=== PATIENT | male | born 1950 | race Caucasian/White ===

== ENCOUNTER 2021-09-22 13:32 | Inpatient (IN) ==
[2021-09-22 14:19] LABS: Calcium 9.3 mg/dL (8.6-10.3); Potassium 3.4 mEq/L (3.5-5.1)
[2021-09-22] MEDS: 0.9 % Sodium Chloride 1,000 ML IVC SCH (14:30)
[2021-09-22] MEDS ORDERED: *HR* Heparin 5,000 UNIT/ML VIAL IVP PRN (15:17)
[2021-09-22] MEDS ORDERED: *HR* Heparin 5,000 UNIT/ML VIAL IVP ONE (15:17)
[2021-09-22] MEDS ORDERED: Dexamethasone Sodium Phos/PF 10 MG/ML VIAL IVP ONE (15:45)
[2021-09-22] MEDS ORDERED: Ondansetron 4 MG/2 ML VIAL IVP PRN (16:30)
[2021-09-22] MEDS ORDERED: Melatonin 3 MG TABLET PO PRN (16:30)
[2021-09-22] MEDS ORDERED: Naloxone 0.4 MG/ML INJ IVP PRN (16:30)
[2021-09-22 16:39] LABS: Hematocrit 37.1 % (37.5-50.1); Hemoglobin 13.3 g/dL (12.9-16.9); Mean Corpuscular HGB Conc 35.8 g/dL (31.6-35.5); Mean Corpuscular Hemoglobin 32.4 pg (28.0-33.3); Mean Corpuscular Volume 90.3 fL (83.0-100.0); Mean Platelet Volume 9.8 fL (9.4-12.4); Platelet Count 260 K/mcL (140-400); Red Blood Count 4.11 M/mcL (4.19-5.50); Red Cell Distribution Width 13.5 % (11.5-14.5); White Blood Count 4.9 K/mcL (4.3-11.1)
[2021-09-22 16:49] LABS: Heparin anti-factor XA UFH < 0.04 IU/mL (0.30-0.70); INR 1.5; Prothrombin Time 16.7 Seconds (9.4-12.1)
[2021-09-22] MEDS: Heparin 25,000UNIT/250ML 1/2NS 25,000 UNIT/250 ML IV.SOLN IVC SCH (16:55)
[2021-09-22 19:55] LABS: Amorphous Sediment,Urine Few per hpf (None-Few); Bilirubin,Urine Negative (Negative); Blood,Urine Moderate (Negative); Clarity,Urine Turbid (Clear); Color,Urine Yellow (Yellow); Glucose,Urine (UA) Normal (Normal); Hyaline Casts,Urine Few per lpf (None Seen); Ketones,Urine Negative (Negative); Leukocyte Esterase,Urine Negative (Negative); Mucus,Urine Few per lpf (None-Few); Nitrite,Urine Negative (Negative); PH,Urine 5.5 pH Units (5.0-8.0); Protein,Urine 70 mg/dL (Neg-Trace); RBC,Urine 0-3 per hpf (0-3); Renal Epithelial Cells,Urine Few per hpf (None-Few); Specific Gravity,Urine 1.016 (1.010-1.025); Squamous Epithelial Cell,Urine Few per hpf (None-Few); Transitional Epi Cells,Urine Few per hpf (None-Few); Urobilinogen,Urine Normal (Normal); WBC,Urine 15-30 per hpf (0-3)
[2021-09-22] MEDS ORDERED: Perflutren Lipid Microsphere 1.3 ML in 0.9 % Sodium Chloride 8.7 ML IVP PRN (22:26)
[2021-09-23] MEDS: *HR* Heparin 5,000 UNIT/ML VIAL IVP PRN ×2 (00:46→08:34)
[2021-09-23 08:01] LABS: Basophils % 0.4 %; Eosinophils # 0.1 K/mcL (0.0-0.6); Eosinophils % 1.3 %; Hematocrit 35.8 % (37.5-50.1); Hemoglobin 12.5 g/dL (12.9-16.9); Immature Granulocytes % 0.7 % (0-4); Lymphocytes # 0.5 K/mcL (0.6-4.6); Mean Corpuscular HGB Conc 34.9 g/dL (31.6-35.5); Mean Corpuscular Hemoglobin 31.6 pg (28.0-33.3); Mean Corpuscular Volume 90.6 fL (83.0-100.0); Mean Platelet Volume 9.8 fL (9.4-12.4); Monocytes # 0.2 K/mcL (0.0-1.3); Monocytes % 3.4 %; Neutrophils # 4.7 K/mcL (1.6-8.9); Platelet Count 229 K/mcL (140-400); Red Blood Count 3.95 M/mcL (4.19-5.50); Red Cell Distribution Width 13.4 % (11.5-14.5); Segmented Neutrophils % 85.2 %; White Blood Count 5.5 K/mcL (4.3-11.1)
[2021-09-23 08:11] LABS: Calcium 9.2 mg/dL (8.6-10.3); Potassium 3.3 mEq/L (3.5-5.1)
[2021-09-23] MEDS: 0.9 % Sodium Chloride 1,000 ML IVC SCH ×3 (08:41→18:34)
[2021-09-23 09:25] LABS: Platelet Estimate Normal (Normal); Reactive Lymphocytes Present (Not Present)
[2021-09-23 13:13] LABS: Albumin 3.1 g/dL (3.5-5.7); Albumin/Globulin Ratio 0.9 (1.1-2.2); Bilirubin,Direct 0.3 mg/dL (0.0-0.2); Bilirubin,Indirect 0.6 mg/dL (0.0-1.0); Bilirubin,Total 0.9 mg/dL (0.3-1.0); Globulin 3.6 g/dL (2.4-3.5); Total Protein 6.7 g/dL (6.4-8.9)
[2021-09-23 14:22] LABS: Heparin anti-factor XA UFH 0.06 IU/mL (0.30-0.70)
[2021-09-23 14:44] LABS: Magnesium 2.7 mg/dL (1.6-2.6)
[2021-09-23 14:57] LABS: Thyroid Stimulating Hormone 0.448 mcIU/mL (0.340-5.600)
[2021-09-23] MEDS: Heparin 25,000UNIT/250ML 1/2NS 25,000 UNIT/250 ML IV.SOLN IVC SCH (16:11)
[2021-09-23] MEDS ORDERED: 0.9 % Sodium Chloride 250 ML ONE (17:19)
[2021-09-24] MEDS: 0.9 % Sodium Chloride 1,000 ML IVC SCH ×2 (04:27→16:49)
[2021-09-24 05:25] LABS: Basophils % 0.5 %; Eosinophils % 0.5 %; Hematocrit 35.5 % (37.5-50.1); Immature Granulocytes % 1.1 % (0-4); Lymphocytes # 0.5 K/mcL (0.6-4.6); Lymphocytes % 7.7 %; Mean Corpuscular HGB Conc 33.8 g/dL (31.6-35.5); Mean Corpuscular Hemoglobin 30.4 pg (28.0-33.3); Mean Corpuscular Volume 89.9 fL (83.0-100.0); Mean Platelet Volume 9.5 fL (9.4-12.4); Monocytes # 0.2 K/mcL (0.0-1.3); Monocytes % 3.3 %; Neutrophils # 5.8 K/mcL (1.6-8.9); Platelet Count 249 K/mcL (140-400); Red Blood Count 3.95 M/mcL (4.19-5.50); Red Cell Distribution Width 13.2 % (11.5-14.5); Segmented Neutrophils % 86.9 %; White Blood Count 6.6 K/mcL (4.3-11.1)
[2021-09-24 05:32] LABS: Albumin 2.8 g/dL (3.5-5.7); Albumin/Globulin Ratio 0.8 (1.1-2.2); Bilirubin,Total 0.6 mg/dL (0.3-1.0); Calcium 8.9 mg/dL (8.6-10.3); Globulin 3.5 g/dL (2.4-3.5); Potassium 3.6 mEq/L (3.5-5.1); Total Protein 6.3 g/dL (6.4-8.9)
[2021-09-24] MEDS: Heparin 25,000UNIT/250ML 1/2NS 25,000 UNIT/250 ML IV.SOLN IVC SCH (08:17)
[2021-09-24] MEDS ORDERED: Remdesivir 200 MG in 0.9 % Sodium Chloride 100 ML IVPB ONE (08:53)
[2021-09-24] MEDS: Cholecalciferol (D-3) 1,000 UNIT (25MCG) TABLET PO SCH (10:21)
[2021-09-24] MEDS: Pantoprazole 40 MG VIAL IVP SCH (10:22)
[2021-09-24] MEDS: Apixaban 5 MG TABLET PO SCH ×2 (12:49→19:56)
[2021-09-25 02:05] LABS: Hematocrit 34.5 % (37.5-50.1); Hemoglobin 11.4 g/dL (12.9-16.9); Mean Corpuscular Hemoglobin 30.6 pg (28.0-33.3); Mean Corpuscular Volume 92.7 fL (83.0-100.0); Mean Platelet Volume 9.1 fL (9.4-12.4); Platelet Count 242 K/mcL (140-400); Red Blood Count 3.72 M/mcL (4.19-5.50); Red Cell Distribution Width 13.4 % (11.5-14.5); White Blood Count 6.2 K/mcL (4.3-11.1)
[2021-09-25 02:24] LABS: Albumin 2.7 g/dL (3.5-5.7); Albumin/Globulin Ratio 0.9 (1.1-2.2); Bilirubin,Direct 0.2 mg/dL (0.0-0.2); Bilirubin,Indirect 0.3 mg/dL (0.0-1.0); Bilirubin,Total 0.5 mg/dL (0.3-1.0); Globulin 3.1 g/dL (2.4-3.5); Total Protein 5.8 g/dL (6.4-8.9)
[2021-09-25 02:25] LABS: BUN/Creatinine Ratio 39 (6-26); Blood Urea Nitrogen 51 mg/dL (8-23); C-Reactive Protein 59 mg/L (Less than 10); Calcium 8.7 mg/dL (8.6-10.3); Carbon Dioxide 23 mEq/L (23-29); Chloride 109 mEq/L (98-107); Glucose 124 mg/dL (70-105); Lactate Dehydrogenase 283 Units/L (140-271); Osmolality,Calculated 303 (280-300); Potassium 3.6 mEq/L (3.5-5.1); Sodium 139 mEq/L (136-145); eGFR For African Americans > 60 (> 60); eGFR For Non-African Americans 54 (> 60)
[2021-09-25] MEDS: 0.9 % Sodium Chloride 1,000 ML IVC SCH ×3 (03:18→20:20)
[2021-09-25] MEDS: Pantoprazole 40 MG VIAL IVP SCH (08:13)
[2021-09-25] MEDS: Cholecalciferol (D-3) 1,000 UNIT (25MCG) TABLET PO SCH (08:15)
[2021-09-25] MEDS: Apixaban 5 MG TABLET PO SCH ×2 (08:15→20:19)
[2021-09-25] MEDS: Remdesivir 100 MG in 0.9 % Sodium Chloride 100 ML IVPB SCH (08:29)
[2021-09-26 02:26] LABS: Albumin 2.9 g/dL (3.5-5.7); Albumin/Globulin Ratio 0.9 (1.1-2.2); Bilirubin,Direct 0.2 mg/dL (0.0-0.2); Bilirubin,Indirect 0.5 mg/dL (0.0-1.0); Bilirubin,Total 0.7 mg/dL (0.3-1.0); Globulin 3.4 g/dL (2.4-3.5); Total Protein 6.3 g/dL (6.4-8.9)
[2021-09-26] MEDS: 0.9 % Sodium Chloride 1,000 ML IVC SCH ×2 (10:38→22:07)
[2021-09-26] MEDS: Remdesivir 100 MG in 0.9 % Sodium Chloride 100 ML IVPB SCH (10:39)
[2021-09-26] MEDS: Cholecalciferol (D-3) 1,000 UNIT (25MCG) TABLET PO SCH (10:39)
[2021-09-26] MEDS: Apixaban 5 MG TABLET PO SCH ×2 (10:39→22:06)
[2021-09-26] MEDS: Pantoprazole 40 MG VIAL IVP SCH (10:40)
[2021-09-27 08:41] LABS: Hemoglobin 11.7 g/dL (12.9-16.9); Mean Corpuscular HGB Conc 33.4 g/dL (31.6-35.5); Mean Corpuscular Hemoglobin 30.6 pg (28.0-33.3); Mean Corpuscular Volume 91.6 fL (83.0-100.0); Mean Platelet Volume 8.8 fL (9.4-12.4); Platelet Count 255 K/mcL (140-400); Red Blood Count 3.82 M/mcL (4.19-5.50); Red Cell Distribution Width 13.5 % (11.5-14.5); White Blood Count 7.4 K/mcL (4.3-11.1)
[2021-09-27 09:02] LABS: BUN/Creatinine Ratio 35 (6-26); Blood Urea Nitrogen 45 mg/dL (8-23); Calcium 8.6 mg/dL (8.6-10.3); Carbon Dioxide 28 mEq/L (23-29); Chloride 109 mEq/L (98-107); Glucose 89 mg/dL (70-105); Osmolality,Calculated 303 (280-300); Potassium 4.4 mEq/L (3.5-5.1); Sodium 141 mEq/L (136-145); eGFR For African Americans > 60 (> 60); eGFR For Non-African Americans 55 (> 60)
[2021-09-27 09:04] LABS: Albumin 2.7 g/dL (3.5-5.7); Albumin/Globulin Ratio 0.9 (1.1-2.2); Bilirubin,Direct 0.3 mg/dL (0.0-0.2); Bilirubin,Indirect 0.3 mg/dL (0.0-1.0); Bilirubin,Total 0.6 mg/dL (0.3-1.0); Total Protein 5.7 g/dL (6.4-8.9)
[2021-09-27] MEDS: Pantoprazole 40 MG VIAL IVP SCH (09:26)
[2021-09-27] MEDS: 0.9 % Sodium Chloride 1,000 ML IVC SCH (09:26)
[2021-09-27] MEDS: Cholecalciferol (D-3) 1,000 UNIT (25MCG) TABLET PO SCH (09:27)
[2021-09-27] MEDS: Remdesivir 100 MG in 0.9 % Sodium Chloride 100 ML IVPB SCH (09:27)
[2021-09-27] MEDS: Apixaban 5 MG TABLET PO SCH ×2 (09:27→23:25)
[2021-09-28 01:09] LABS: Hematocrit 34.4 % (37.5-50.1); Hemoglobin 11.2 g/dL (12.9-16.9); Mean Corpuscular HGB Conc 32.6 g/dL (31.6-35.5); Mean Corpuscular Hemoglobin 29.7 pg (28.0-33.3); Mean Corpuscular Volume 91.2 fL (83.0-100.0); Platelet Count 253 K/mcL (140-400); Red Blood Count 3.77 M/mcL (4.19-5.50); Red Cell Distribution Width 13.2 % (11.5-14.5); White Blood Count 6.2 K/mcL (4.3-11.1)
[2021-09-28 01:28] LABS: Albumin 2.7 g/dL (3.5-5.7); Albumin/Globulin Ratio 0.9 (1.1-2.2); BUN/Creatinine Ratio 35 (6-26); Bilirubin,Direct 0.2 mg/dL (0.0-0.2); Bilirubin,Indirect 0.3 mg/dL (0.0-1.0); Bilirubin,Total 0.5 mg/dL (0.3-1.0); Blood Urea Nitrogen 39 mg/dL (8-23); Calcium 8.4 mg/dL (8.6-10.3); Carbon Dioxide 23 mEq/L (23-29); Chloride 110 mEq/L (98-107); Glucose 109 mg/dL (70-105); Osmolality,Calculated 296 (280-300); Sodium 138 mEq/L (136-145); Total Protein 5.7 g/dL (6.4-8.9); eGFR For African Americans > 60 (> 60); eGFR For Non-African Americans > 60 (> 60)
[2021-09-28] MEDS: 0.9 % Sodium Chloride 1,000 ML IVC SCH ×3 (02:29→10:16)
[2021-09-28] MEDS: Apixaban 5 MG TABLET PO SCH ×2 (10:04→20:14)
[2021-09-28] MEDS: Cholecalciferol (D-3) 1,000 UNIT (25MCG) TABLET PO SCH (10:04)
[2021-09-28] MEDS: Pantoprazole 40 MG VIAL IVP SCH (10:05)
[2021-09-28] MEDS: Remdesivir 100 MG in 0.9 % Sodium Chloride 100 ML IVPB SCH (10:16)
[2021-09-29 01:48] LABS: Hematocrit 36.1 % (37.5-50.1); Hemoglobin 11.8 g/dL (12.9-16.9); Mean Corpuscular HGB Conc 32.7 g/dL (31.6-35.5); Mean Corpuscular Hemoglobin 29.8 pg (28.0-33.3); Mean Corpuscular Volume 91.2 fL (83.0-100.0); Mean Platelet Volume 8.7 fL (9.4-12.4); Platelet Count 246 K/mcL (140-400); Red Blood Count 3.96 M/mcL (4.19-5.50); Red Cell Distribution Width 13.2 % (11.5-14.5); White Blood Count 6.1 K/mcL (4.3-11.1)
[2021-09-29 02:01] LABS: Alanine Aminotransferase 27 Units/L (7-52); Albumin 2.7 g/dL (3.5-5.7); Albumin/Globulin Ratio 0.9 (1.1-2.2); Alkaline Phosphatase 93 Units/L (34-104); Aspartate Amino Transferase 25 Units/L (13-39); BUN/Creatinine Ratio 31 (6-26); Bilirubin,Direct 0.2 mg/dL (0.0-0.2); Bilirubin,Indirect 0.4 mg/dL (0.0-1.0); Bilirubin,Total 0.6 mg/dL (0.3-1.0); Blood Urea Nitrogen 37 mg/dL (8-23); C-Reactive Protein 44 mg/L (Less than 10); Calcium 8.4 mg/dL (8.6-10.3); Carbon Dioxide 26 mEq/L (23-29); Chloride 106 mEq/L (98-107); Globulin 3.1 g/dL (2.4-3.5); Glucose 101 mg/dL (70-105); Osmolality,Calculated 293 (280-300); Potassium 4.3 mEq/L (3.5-5.1); Sodium 137 mEq/L (136-145); Total Protein 5.8 g/dL (6.4-8.9); eGFR For African Americans > 60 (> 60); eGFR For Non-African Americans > 60 (> 60)
[2021-09-29] MEDS: Pantoprazole 40 MG VIAL IVP SCH (10:51)
[2021-09-29] MEDS: Cholecalciferol (D-3) 1,000 UNIT (25MCG) TABLET PO SCH (10:52)
[2021-09-29] MEDS: Apixaban 5 MG TABLET PO SCH ×2 (10:53→20:59)
[2021-09-29] MEDS ORDERED: Metoprolol XL (24 HR) Succ 25 MG TAB.ER.24H PO SCH (21:00)
[2021-09-30 06:03] LABS: Basophils % 0.1 %; Eosinophils % 0.5 %; Hematocrit 37.1 % (37.5-50.1); Hemoglobin 12.4 g/dL (12.9-16.9); Immature Granulocytes % 1.5 % (0-4); Lymphocytes # 0.8 K/mcL (0.6-4.6); Lymphocytes % 10.3 %; Mean Corpuscular HGB Conc 33.4 g/dL (31.6-35.5); Mean Corpuscular Hemoglobin 30.4 pg (28.0-33.3); Mean Corpuscular Volume 90.9 fL (83.0-100.0); Mean Platelet Volume 8.8 fL (9.4-12.4); Monocytes # 0.3 K/mcL (0.0-1.3); Monocytes % 3.6 %; Neutrophils # 6.3 K/mcL (1.6-8.9); Platelet Count 210 K/mcL (140-400); Red Blood Count 4.08 M/mcL (4.19-5.50); Red Cell Distribution Width 13.2 % (11.5-14.5); White Blood Count 7.5 K/mcL (4.3-11.1)
[2021-09-30 06:20] LABS: BUN/Creatinine Ratio 28 (6-26); Blood Urea Nitrogen 33 mg/dL (8-23); Calcium 8.5 mg/dL (8.6-10.3); Carbon Dioxide 25 mEq/L (23-29); Chloride 105 mEq/L (98-107); Glucose 90 mg/dL (70-105); Osmolality,Calculated 289 (280-300); Potassium 4.3 mEq/L (3.5-5.1); Sodium 136 mEq/L (136-145); eGFR For African Americans > 60 (> 60); eGFR For Non-African Americans > 60 (> 60)
[2021-09-30] MEDS: Cholecalciferol (D-3) 1,000 UNIT (25MCG) TABLET PO SCH (10:23)
[2021-09-30] MEDS: dexAMETHasone 4 MG TABLET PO SCH (10:23)
[2021-09-30] MEDS: Apixaban 5 MG TABLET PO SCH ×2 (10:24→20:37)
[2021-09-30] MEDS: Pantoprazole 40 MG VIAL IVP SCH (10:24)
[2021-09-30] MEDS: Metoprolol XL (24 HR) Succ 25 MG TAB.ER.24H PO SCH ×2 (10:24→20:37)
[2021-10-01] MEDS: Metoprolol XL (24 HR) Succ 25 MG TAB.ER.24H PO SCH ×2 (09:37→19:59)
[2021-10-01] MEDS: Pantoprazole 40 MG VIAL IVP SCH (09:37)
[2021-10-01] MEDS: Apixaban 5 MG TABLET PO SCH ×2 (09:37→19:59)
[2021-10-01] MEDS: dexAMETHasone 4 MG TABLET PO SCH (09:37)
[2021-10-01] MEDS: Cholecalciferol (D-3) 1,000 UNIT (25MCG) TABLET PO SCH (09:37)
[2021-10-01] MEDS: DilTIAZem CD (24hr) 120 MG CAP.ER.24H PO SCH (13:17)
[2021-10-02] MEDS: Cholecalciferol (D-3) 1,000 UNIT (25MCG) TABLET PO SCH (08:10)
[2021-10-02] MEDS: DilTIAZem CD (24hr) 120 MG CAP.ER.24H PO SCH (08:10)
[2021-10-02] MEDS: Apixaban 5 MG TABLET PO SCH (08:10)
[2021-10-02] MEDS: Metoprolol XL (24 HR) Succ 25 MG TAB.ER.24H PO SCH (08:10)
[2021-10-02] MEDS: dexAMETHasone 4 MG TABLET PO SCH (08:10)
[2021-10-02 15:49] VITALS: BP 125/86; PULSE 81; TEMP 97.5; O2SAT 90
== END 2021-10-02 18:00 | disposition home health service (06) | DRG 871 ==
LOC: 2NNU 13:32 → EMEROOARM 13:32 → SUATTDRO 17:46 → 2NNU 18:15 → 3NENU 09-25 11:45
PROVIDERS: ADMIT Student in an Organized Health Care Education/Training Program; ATTEND Student in an Organized Health Care Education/Training Program